=== PATIENT | female | born 1965 | race Caucasian/White ===

== ENCOUNTER 2023-04-08 12:45 | Day surgery (SDC) | payer OTHER, SELFPAY ==
[2023-04-08 13:39] VITALS: BMI 33.5
[2023-04-08 13:46] VITALS: BP 150/93; PULSE 74; RESP 16; TEMP 37.1; O2SAT 97
[2023-04-08] MEDS: LACTATED RINGERS 1,000 ML 42 ML IV (13:52)
--- NOTE | 2023-04-08 14:45 | PM.HP.1 ---
History of Present Illness History of Present Illness Date Patient Seen: 04/08/23 Chief complaint: SDC Narrative: First screening colonoscopy PFSH Social History Smoking Status: Former smoker Meds Home Medications and Allergies Home Medications Medication Instructions Recorded Confirmed Type amlodipine 5 mg tablet 5 mg PO DAILY 04/08/23 04/08/23 History hydrochlorothiazide 25 mg tablet 25 mg PO DAILY 04/08/23 04/08/23 History levothyroxine 125 mcg capsule 125 mcg PO DAILY 04/08/23 04/08/23 History montelukast 10 mg tablet 10 mg PO DAILY 04/08/23 04/08/23 History Allergies Allergy/AdvReac Type Severity Reaction Status Date / Time No Known Drug Allergies Allergy Verified 04/08/23 13:36 Exam Vital Signs (past 8 hours): - 04/08/23 13:46 Temperature 98.7 F Pulse Rate 74 Respiratory Rate 16 Blood Pressure 150/93 H Pulse Oximetry 97 Oxygen Delivery Method Room Air Oxygen Delivery Method Room Air Narrative Exam Narrative: Oropharynx free of lesions Chest clear to auscultation percussion Cardiac exam reveals no S3 or murmur Assessment & Plan Assessment & Plan narrative: For screening colonoscopy. Risks, benefits, alternatives have been explained.
--- NOTE | 2023-04-08 14:46 | PM.OP.COLON ---
Operative Date/Time/Diagnoses Date of procedure: 04/08/23 Pre-op diagnosis: See indication and findings Procedure & Clinicians Study performed: Colonoscopy Indications: 1st screening Surgeon: Shanae Mcdermott Procedure Notes Procedure in detail: After informed consent was obtained the patient was placed in left lateral decubitus position. Video colonoscope was introduced rectum slowly advanced cecum. Preparation was good. On slow withdrawal mucosa was carefully examined. The scope was removed. The patient tolerated procedure well. Blood loss none Complications none Sedation mac Findings 1. Normal colonoscopy to cecum Season should have follow-up colonoscopy in 10 years
[2023-04-08 15:19] VITALS: BP 112/66; RESP 19; TEMP 36.9; O2SAT 95
[2023-04-08 15:28] VITALS: BP 134/90; PULSE 74; RESP 10; O2SAT 96
[2023-04-08 15:29] VITALS: BP 131/79; PULSE 75; RESP 10; O2SAT 99
[2023-04-08 15:33] VITALS: BP 129/75; PULSE 72; RESP 12; TEMP 36.9; O2SAT 96
[2023-04-08 15:38] VITALS: BP 135/73; PULSE 73; RESP 13; TEMP 36.4
== END 2023-04-08 15:52 | disposition home or self-care (01) ==
PROVIDERS: PCP Student in an Organized Health Care Education/Training Program; Referring Provider Internal Medicine Gastroenterology; Visit Provider Internal Medicine Gastroenterology
PROC: 0DJD8ZZ Inspection of Lower Intestinal Tract, Via Natural or Artificial Opening Endoscopic (ICD-10-PCS; CPT 45378; principal; 2023-04-08 14:00)
DX: Z12.11 Encounter for screening for malignant neoplasm of colon (principal)
CPT/HCPCS: 45378; J2704